=== PATIENT | female | born 1960 | race Caucasian/White ===

== ENCOUNTER 2024-01-24 08:40 | Outpatient (OUT) | payer MEDICARE, SELFPAY ==
[2024-01-24 10:25] LABS: Free T4 0.74 ng/dL (0.76-1.46)
== END 2024-01-24 08:41 | disposition home or self-care (01) ==
LOC: LAB 08:45
PROVIDERS: PCP Family Medicine; Visit Provider Family Medicine
DX: E03.8 Other specified hypothyroidism (principal)
CPT/HCPCS: 36415; 84439

== ENCOUNTER 2024-05-15 14:19 | Outpatient (OUT) | payer MEDICARE, SELFPAY ==
--- NOTE | 2024-05-15 | XR_ITS ---
The [address] [address] Patient Name: LENORA WILLETT MRN: [id number] date: 1960 Sex: F Assigned Patient Location: [facility] Current Patient Location: Accession/Order Number: [id number] Exam Date: 05/15/2024 14:45 Report Date: 05/16/2024 09:32 At the request of: VIANNEY URIARTE Procedure: XR DEXA axial skeleton EXAMINATION: XR DEXA axial skeleton, 05/15/2024 2:45 PM EDT HISTORY: OSTEOPENIA AFTER MENOPAUSE M85.8 COMPARISON: 2021 TECHNIQUE: Dual-energy X-ray absorptiometry (DEXA) bone density study performed for the axial skeleton. FINDINGS: Bone mineral the lumbar spine L1-L4 measures 1.170 g/sq cm. T score -0.1. Normal. Lowest bone mineral density right femoral neck measures 0.737 g/sq cm. T score -2.2. Osteopenia XR/XR DEXA axial skeleton IMPRESSION: Osteopenia. Moderate fracture risk Pharmacologic treatment recommendations * No uniform recommendation applies to all patients. Management plans must be individualized. * Consider initiating pharmacologic treatment in postmenopausal women and men >= 50 years of age who have the following: Primary fracture prevention: * T-score <= - 2.5 at the femoral neck, total hip, lumbar spine, 33% radius (some uncertainty with existing data) by DXA. * Low bone mass (osteopenia: T-score between - 1.0 and - 2.5) at the femoral neck or total hip by DXA with a 10-year hip fracture risk >= 3% or a 10-year major osteoporosis-related fracture risk >= 20% (i.e., clinical vertebral, hip, forearm, or proximal humerus) based on the [place]-adapted FRAXregistered model. Secondary fracture prevention: * Fracture of the hip or vertebra regardless of BMD [4, 5]. * Fracture of proximal humerus, pelvis, or distal forearm in persons with low bone mass (osteopenia: T-score between - 1.0 and - 2.5). The decision to treat should be individualized in persons with a fracture of the proximal humerus, pelvis, or distal forearm who do not have osteopenia or low BMD [12, 13]. Rafal Jamison MS SL, Susanne KL, Kenn EM, Heath KG, AJ, Eliseo ES. The clinician's guide to prevention and treatment of osteoporosis. Osteoporos Int. 2021;33(10):5380-6779. doi: 10.1007/o66667-794-83295-h. Epub 2021Dec 22. Erratum in: Osteoporos Int. 2021Mar 23;: PMID: [id number]; PMCID: [id number]. Electronically authenticated by: LUIS GOODMAN Date: 05/16/2024 09:32
--- NOTE | 2024-05-15 | MM_ITS ---
Patient Name: LENORA WILLETT MR#: [id number] : 1960 Exam Date: 05/15/2024 Ordering Doctor: DR VIANNEY URIARTE RADIOLOGY REPORT PROCEDURE: MM TOMOSYNTHESIS SCREENING BI COMPARISON: MG MAMM SCREEN 3D NICHOLAS CAD, 12/16/2021. INDICATIONS: Screening mammogram for breast cancer Z12.31 Calculator Name NCI Breast Cancer Risk Assessment Tool 5 Year Breast Cancer Risk 1.50% Lifetime Breast Cancer Risk 5.60% Personal Breast Cancer No Personal Ovarian Cancer No Treatments None Family Cancers Father with prostate cancer at age ~60. LOCATION: [facility] BREAST COMPOSITION: There are scattered areas of fibroglandular density. FINDINGS: DIAGNOSTIC CATEGORY 1--NEGATIVE. NO CHANGE FROM COMPARISON ASSESSMENT. Scattered benign-appearing calcifications are present. Scattered benign-appearing lymph nodes are present. RIGHT BREAST: No significant suspicious finding. LEFT BREAST: No significant suspicious finding. RECOMMENDATIONS: ROUTINE MAMMOGRAM AND CLINICAL EVALUATION IN 12 MONTHS. PLEASE NOTE: A NORMAL MAMMOGRAM DOES NOT EXCLUDE THE POSSIBILITY OF BREAST CANCER. A CLINICALLY SUSPICIOUS PALPABLE LUMP SHOULD BE BIOPSIED. Dictated by: Levi Smith MD on 05/15/2024 at 15:36 Approved by: Levi Smith MD on 05/15/2024 at 15:37
== END 2024-05-15 14:20 | disposition home or self-care (01) ==
LOC: MAMMO 14:19
PROVIDERS: PCP Family Medicine; Visit Provider Family Medicine
DX: Z12.31 Encounter for screening mammogram for malignant neoplasm of breast (principal); Z78.0 Asymptomatic menopausal state; M85.80 Other specified disorders of bone density and structure, unspecified site; Z80.42 Family history of malignant neoplasm of prostate
CPT/HCPCS: 77063; 77067; 77080